=== PATIENT | female | born 1965 | race Caucasian/White ===

== ENCOUNTER → 2017-05-29 | Outpatient (CLI) | payer BC ==
[~2017-05-29] MED LIST: IOHEXOL 180 MG/ML 10 ML VIAL.; methylPREDNISolone ACETATE 40 MG/ML VIAL.; methylPREDNISolone ACETATE 80 MG/ML VIAL.
== END | disposition home or self-care (01) ==
LOC: PNCL 07:54
DX: M50.123 Cervical disc disorder at C6-C7 level with radiculopathy (principal); M48.02 Spinal stenosis, cervical region; E11.9 Type 2 diabetes mellitus without complications; I10 Essential (primary) hypertension; M19.90 Unspecified osteoarthritis, unspecified site; F17.210 Nicotine dependence, cigarettes, uncomplicated; Z98.890 Other specified postprocedural states; Z72.89 Other problems related to lifestyle
CPT/HCPCS: 62321; J1030; J1040; Q9965

== ENCOUNTER → 2017-06-12 | Outpatient (CLI) | payer BC | END | disposition home or self-care (01) | LOC: PNCL 07:47 | DX: M50.10 Cervical disc disorder with radiculopathy, unspecified cervical region (principal) | CPT/HCPCS: 62321; J1030; J1040; Q9965 ==

== ENCOUNTER → 2017-08-04 | Outpatient (CLI) | payer BC | END | disposition home or self-care (01) | LOC: PNCL 09:58 | DX: M50.123 Cervical disc disorder at C6-C7 level with radiculopathy (principal); M48.02 Spinal stenosis, cervical region | CPT/HCPCS: 62321; J1030; J1040; Q9965 ==

== ENCOUNTER → 2018-01-19 | Outpatient (CLI) | payer BC, OTHER ==
[~2018-01-19] MED LIST changes: +AMLO5TAB7 PO; +ASPI-482 PO; +ATOR40TA59 PO; +CYAN10005 PO; +FAMO20TA5 PO; +FENO134C PO; +HYDR-971 PO; -IOHEXOL 180 MG/ML 10 ML VIAL.; +LATA2.5D3 EACHEYE; +LATA2.5D3 OP; +LISI-334 PO; +LISI10TA2 PO; +METF500T16 PO; +METH-38 PO; +OMEG1CAP6 PO; +RANI150T21 PO; +THYR30TA PO; +THYR60TA PO; +VENL150C PO; -methylPREDNISolone ACETATE 40 MG/ML VIAL.; -methylPREDNISolone ACETATE 80 MG/ML VIAL.
[2018-01-19 16:09] LABS: BASO # 0.1 x10^3/uL (0.0-0.2); BASO % 1 % (0-3); EOS # 0.6 x10^3/uL (0.0-0.7); EOS % 6 % (0-3); HEMOGLOBIN 14.8 g/dL (12.0-15.5); LYMPH # 2.7 x10^3/uL (1.0-4.8); LYMPH % 30 % (24-48); MEAN CORPUSCULAR HEMOGLOBIN 30 pg (25-35); MEAN CORPUSCULAR HGB CONC 35 g/dL (31-37); MEAN CORPUSCULAR VOLUME 87 fL (79-100); MONO # 0.6 x10^3/uL (0.0-1.1); MONO % 7 % (0-9); NEUT % 56 % (31-73); PLATELET COUNT 267 x10^3/uL (140-400); RED BLOOD COUNT 4.92 x10^6/uL (3.50-5.40); RED CELL DISTRIBUTION WIDTH 14.3 % (11.5-14.5); WHITE BLOOD COUNT 8.9 x10^3/uL (4.0-11.0)
--- NOTE | 2018-01-19 16:13 | EKG ---
[facility] [address] [place] [address] Test Date: 2018-01-19 Test Time: 15:48:37 Pat Name: ART CHRISTINE Department: Room: Gender: F Area Attendant: : 1965 Requested By: PERRY QUEEN Order Number: [id number] Reading MD: Bassam Nuñez Measurements Intervals [place] Rate: 93 P: 9 ID: 130 QRS: 21 QRSD: 64 T: 76 QT: 336 QTc: 420 Interpretive Statements SINUS RHYTHM NO SPECIFIC ECG ABNORMALITIES Electronically Signed On 01-20-2018 11:44:28 CDT by Bassam Nuñez
[2018-01-19 16:46] LABS: ALBUMIN/GLOBULIN RATIO 1.2 (1.0-1.7); CALCIUM 9.6 mg/dL (8.5-10.1); CREATININE 0.9 mg/dL (0.6-1.0); GFR 65.5; POTASSIUM 3.8 mmol/L (3.5-5.1); TOTAL BILIRUBIN 0.3 mg/dL (0.2-1.0); TOTAL PROTEIN 7.4 g/dL (6.4-8.2)
== END | disposition home or self-care (01) ==
LOC: SURGPAT 13:37
PROVIDERS: ATTEND Neurological Surgery
DX: Z01.818 Encounter for other preprocedural examination (principal); M50.122 Cervical disc disorder at C5-C6 level with radiculopathy; M50.123 Cervical disc disorder at C6-C7 level with radiculopathy
CPT/HCPCS: 36415; 80053; 85025; 87641; 93005

== ENCOUNTER 2018-01-26 07:09 | Observation (INO) | payer BC, OTHER ==
[~2018-01-26] VITALS: Ht 157.5 cm; Wt 90.7 kg
[2018-01-26] VITALS (11 sets, daily range): BP systolic 112–132; BP diastolic 66–81
[~2018-01-26 07:09] MED LIST changes: +BUPIVAC MPF-EPI 0.5%-1:200000 30 ML VIAL. ONE; +GELATIN SPONGE SIZE 100. ONE; -HYDR-971 PO; -METH-38 PO; +THROMBIN TOPICAL 20,000 UNIT SPRAY.SYRN KIT TP ONE
[2018-01-26] MEDS ORDERED: BACITRACIN 50,000 UNIT in IV NORMAL SALINE 1000ML BAG 1,000 ML IRR ONE (07:31)
[2018-01-26] MEDS ORDERED: IV RINGERS,LACTATED 1000ML 1,000 ML IV SCH ×2 (08:00→11:28)
[2018-01-26] MEDS ORDERED: REMIFENTANIL 1 MG VIAL. IV ONE (08:19)
[2018-01-26] MEDS ORDERED: fentaNYL PF VIAL 250 MCG/5 ML VIAL ONE (08:19)
[2018-01-26] MEDS ORDERED: ROCURONIUM 50 MG/5 ML VIAL. ONE (08:20)
[2018-01-26] MEDS ORDERED: MIDAZOLAM HCL/PF 2 MG/2 ML VIAL. ONE (08:20)
[2018-01-26] MEDS ORDERED: PROPOFOL 20 ML IV ONE (09:11)
[2018-01-26] MEDS ORDERED: PROPOFOL 50 ML IV ONE (09:11)
[2018-01-26] MEDS ORDERED: 0.9 % SODIUM CHLORIDE 20 ML VIAL. IJ ONE (09:11)
[2018-01-26] MEDS ORDERED: PHENYLEPHRINE in 0.9% NACL PF 1 MG/10 ML SYRINGE. IV ONE (09:11)
[2018-01-26] MEDS ORDERED: LIDOCAINE 2% PF Vial for OR 5 ML VIAL. ONE (09:11)
[2018-01-26] MEDS ORDERED: ONDANSETRON PF 4 MG/2 ML VIAL. ONE (09:11)
[2018-01-26] MEDS ORDERED: DESFLURANE > 120 MINUTES IH ONE (09:11)
[2018-01-26] MEDS ORDERED: DEXAMETHASONE SOD PHOS 20 MG/5 ML VIAL. ONE (09:11)
[2018-01-26] MEDS ORDERED: PHENYLEPHRINE 10 MG/ML VIAL. ONE ×2 (09:24)
[2018-01-26] MEDS ORDERED: ePHEDrine PF IN SALINE 50 MG/5 ML DISP.SYRIN IV ONE (09:28)
[2018-01-26] MEDS ORDERED: MINERAL OIL/PETROLATUM,WHITE OPHTH OINT 3.5GM TUBE. ONE (09:36)
[2018-01-26] MEDS ORDERED: MORPHINE SULFATE 2 MG/ML VIAL. ONE (11:26)
[2018-01-26] MEDS ORDERED: PROCHLORPERAZINE 10 MG/2 ML VIAL. ONE (11:26)
[2018-01-26] MEDS ORDERED: fentaNYL PF VIAL 100 MCG/2 ML VIAL ONE (11:26)
[2018-01-26] MEDS ORDERED: fentaNYL PF VIAL 100 MCG/2 ML VIAL IV PRN ×2 (11:30→12:30)
[2018-01-26] MEDS ORDERED: HYDROmorphone 2 MG/ML VIAL IV PRN (11:30)
[2018-01-26] MEDS ORDERED: LIDOCAINE 1% PF 2 ML VIAL. ID PRN (11:30)
[2018-01-26] MEDS ORDERED: PROCHLORPERAZINE 10 MG/2 ML VIAL. IV PRN (11:30)
[2018-01-26] MEDS ORDERED: ONDANSETRON PF 4 MG/2 ML VIAL. IV PRN ×2 (11:30→12:30)
[2018-01-26] MEDS: MORPHINE SULFATE 2 MG/ML VIAL. IV PRN ×2 (11:39→12:07)
[2018-01-26] MEDS: fentaNYL PF VIAL 100 MCG/2 ML VIAL IV PRN ×2 (11:40→12:34)
--- NOTE | 2018-01-26 12:26 | OP ---
DATE OF SURGERY: 01/26/2018 PREOPERATIVE DIAGNOSES: Herniated cervical disc and foraminal narrowing with cervical radiculopathy, C5-C6, C6-C7. POSTOPERATIVE DIAGNOSES: Herniated cervical disc and foraminal narrowing with cervical radiculopathy, C5-C6, C6-C7. OPERATION PERFORMED: Anterior cervical microdiscectomy C5-C6, C6-C7; anterior cervical interbody fusion, C5-C6, C6-C7 with interbody fusion bone block insert and anterior cervical plate C5-6-7. The operation was done with multimodality monitoring including EMG, SSEP, NIMS, motor evoked potentials. We also used fluoroscopy, the microscope with microscopic dissection. SURGEON: Pantera Queen M.D. [place] UNDERWRITER: Carla Rodrigez, assisted with the surgery. She assisted with exposure, the two level discectomy and fusion as well as the closure. OPERATIVE INDICATIONS: The patient is a very pleasant 52-year-old who has developed intractable neck and arm pain, which failed conservative measures including epidural steroid injections, which were not significantly beneficial. On imaging studies, the above-mentioned findings were seen and I recommended a 2-level anterior cervical microdiscectomy and fusion. I spoke with her about the surgery, the risks, technique and expected postoperative course and she wished to go ahead. DESCRIPTION OF PROCEDURE: Following general endotracheal anesthesia, the patient was positioned supine on the operating room table. The anterior cervical area was then prepped and draped in standard fashion. GAYATRI hose and AV impulse boots were applied for DVT prophylaxis. The microscope was draped. Fluoroscopy was draped and brought into the field. Monitoring was established. Ancef 2 grams was given less than 1 hour prior to initiation of surgery. Using fluoroscopic guidance, an incision was made from the midline around to the right side in a skin crease. It was taken down the skin and subcutaneous tissue. I partly incised the platysma, which gave me access around the medial aspect of sternocleidomastoid and carotid artery sheath down the anterior cervical vertebral bodies. I reflected the trachea and the esophagus contralaterally. I placed a [place] anterior cervical retractor at C6-C7. I confirmed my positions fluoroscopically. I brought in the microscope and the remainder of the surgery was done with the microscope using microscopic technique. I incised the anterior annulus with #11 blade and performed a generous discectomy with pituitary rongeurs. There was considerable bone spurring and I drilled his away as well as the posterior spurring, which I also drilled away. I brought in the 1 and 2 mm micro Kerrisons and trimmed the significant right-sided disc bulging and hard disc and trimmed this material quite far lateral as far as I felt I safely could. I irrigated copiously with antibiotic solution. I was able to pass a blunt hook easily out through the foramen on either side. I scraped away the cartilaginous endplate and measured and placed a 6 mm interbody fusion bone block with allograft bone. I then removed the retractor up to C5-6 and I performed the identical operation at C5-C6. I did again put in 14 mm pins in C5 and C6 and distracted the disc space. I performed a very generous discectomy. I drilled the posterior and anterior spurring away. I used the 1 and 2 mm Kerrisons to remove the annulus and the posterior disc bulging as well as opening the ligament and worked laterally bilaterally to assure that the region was completely decompressed. I measured and placed a 6 mm bone block again packed with allograft bone and then used a 28 mm anterior plate with 13 mm screws, placed superior and inferior screws first and assured myself of excellent positioning and then placed the remaining screws, which were all locked. I irrigated copiously and then removed the retractor. I explored carefully. Hemostasis was perfect. I then closed the wound in layers with absorbable sutures. The skin was closed with 4-0 subcuticular stitch. The monitoring was stable and potentially slightly improved during the operation. There were no untoward events. I was quite pleased with the surgery. PANTERA QUEEN MD DR: LUCAS/deshaun JOB#: [id number] / [id number] GRAY
[2018-01-26] MEDS ORDERED: MAG HYDROX/ALUMINUM HYD/SIMETH 30 ML ORAL.SUSP PO PRN (12:30)
[2018-01-26] MEDS ORDERED: diphenhydrAMINE HCL 25 MG CAPSULE PO PRN (12:30)
[2018-01-26] MEDS ORDERED: MAGNESIUM HYDROXIDE 2,400 MG/30 ML ORAL.SUSP. PO PRN (12:30)
[2018-01-26] MEDS ORDERED: CALCIUM CARBONATE 500 MG TAB.CHEW PO PRN (12:30)
[2018-01-26] MEDS ORDERED: 0.9 % SODIUM CHLORIDE 10 ML DISP.SYRIN. IV PRN (12:30)
[2018-01-26] MEDS ORDERED: HYDROcodone/APAP 5/325MG 1 TAB TABLET PO PRN (12:30)
[2018-01-26] MEDS ORDERED: ACETAMINOPHEN 325 MG TABLET. PO PRN (12:30)
[2018-01-26] MEDS: POTASSIUM CL 20MEQ D5-0.45NACL 1,000 ML IV SCH ×2 (14:23→21:01)
[2018-01-26] MEDS: METHOCARBAMOL 750 MG TABLET PO SCH ×2 (14:24→20:49)
--- NOTE | 2018-01-26 15:33 | PREOP HP ---
DATE OF SERVICE: 01/26/2018. 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 This problem has been present for years, but has worsened recently. Typing and looking down increase her pain. Massage helps. She has been taking naproxen. She had epidural steroid injections, which she said helped her. The injections and physical therapy did not give her significant relief. PAST MEDICAL HISTORY: Cold sores, fever blisters, hypertension, stroke, thyroid disease, tonsillitis, diabetes. PAST SURGICAL HISTORY: 2005, tonsillectomy. FAMILY HISTORY: Cancer, diabetes, hypertension. 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 . Exercises weekly. Denies substance abuse. Smokes half pack per day and has for 30 years. Drinks one alcoholic drink daily. Drinks soda and tea daily. ALLERGIES: No known drug allergies. CURRENT MEDICATIONS: Thyroid medication, venlafaxine, atorvastatin, aspirin, metformin, B12 active, fish oil, famotidine, amlodipine. REVIEW OF SYSTEMS: A 12-point review of systems was obtained and is noncontributory except for that noted above. PHYSICAL EXAMINATION: NEUROSURGERY EXAMINATION: GENERAL APPEARANCE: Alert, pleasant, in no acute distress. HEENT: Normocephalic and atraumatic. NECK AND THYROID: Nyzf-tl-[id number] tenderness with palpation of the posterior cervical region. SKIN: Warm and dry. MUSCULOSKELETAL: Cervical paraspinal muscle bulk is normal, restricted range of motion of the cervical spine. Normal range of motion of the upper extremities bilaterally. EXTREMITIES: No clubbing, cyanosis or edema. NEUROLOGIC: Alert and oriented x 3, normal recent and remote memory, strength 5/5 bilateral upper and lower extremities, sensory was intact to light touch in the upper and lower extremities except for decrease in the right thumb and index finger. Reflexes are present and symmetric in the upper and lower extremities bilaterally, normal gait. IMAGING: I reviewed her cervical MRI scan. On that MRI scan from 04/2017, there is a right-sided disc osteophyte complex as well as severe right foraminal narrowing at C6-C7. At C5-C6, there is posterior disc bulging on the right side with right-sided canal stenosis. ASSESSMENT/ PLAN: At this point, the patient has failed conservative measures and the problem remains quite significant. After reviewing MRI scan, my plan is to proceed with a 2-level ACDF at C5-C6 and C6-C7. I did discuss the surgery with her and the risks. I spoke issues pertaining to the soft tissue structures of the neck and sequelae of injury to each as risks of surgery. I outlined the technique of the operation in detail. I discussed postoperative care. She understands. She would like to go ahead. We will make the arrangements. PERRY QUEEN MD DR: LUCAS/deshaun JOB#: [id number] / [id number] GRAY
[2018-01-26] MEDS: metFORMIN 500 MG TABLET PO SCH (17:25)
[2018-01-26] MEDS: DOCUSATE SODIUM 100 MG CAPSULE. PO SCH (20:49)
[2018-01-26] MEDS ORDERED: LATANOPROST 0.005% OPHTH SOLUTION 2.5ML BOTTLE. OU SCH (21:00)
[2018-01-26] MEDS: VENLAFAXINE 50 MG TABLET. PO SCH (21:00)
[2018-01-26] MEDS ORDERED: FAMOTIDINE 20 MG TABLET. PO SCH (21:00)
[2018-01-26] MEDS: HYDROcodone/APAP 5/325MG 1 TAB TABLET PO PRN (22:39)
[2018-01-27 03:07] VITALS: BP 105/69
[2018-01-27] MEDS: HYDROcodone/APAP 5/325MG 1 TAB TABLET PO PRN (06:14)
[2018-01-27 06:35] VITALS: BP 123/77
[2018-01-27] MEDS: METHOCARBAMOL 750 MG TABLET PO SCH (07:53)
[2018-01-27] MEDS: metFORMIN 500 MG TABLET PO SCH (07:53)
[2018-01-27] MEDS: DOCUSATE SODIUM 100 MG CAPSULE. PO SCH (07:53)
[2018-01-27] MEDS: VENLAFAXINE 50 MG TABLET. PO SCH ×2 (07:53→08:25)
[2018-01-27 07:54] VITALS: BP 141/85
--- NOTE | 2018-01-27 08:56 | DISCH ---
DISCHARGE INSTRUCTIONS Condition on Discharge Condition on Discharge: Stable Activity After Discharge Activity Instructions for Disc: Activity as tolerated, Avoid exertion, Walk in house Other activity instructions: ambulation is the only exercise permitted; gradually increse time and dista Bathing Instructions: Shower-keep dressing dry, No Tub Bath until see Lifting Instructions after Dis: No heavy lifting, No pulling or pushing, Do not lift >10 pounds Exercise Instruction after Dis: Progress as tolerated Driving Instructions after Dis: No driving for 2 weeks Weight Bearing Status after Di: No restrictions, Full weight bearing Diet after Discharge Diet after Discharge: Diabetic No Calorie Level Diet Texture: Regular Liquid Texture: Thin Liquid Wound Incision Care Wound/Incision Care: Ice to area for comfort, Change dressing Other wound/incision instructi: may shower 48 hrs after surgery NO direct water , antibiotic cream/ointment Wound Care Equipment: Dressings Checks after Discharge DC Comment: increase fruits, vegetables and fiber ; attempt bm q 2-3 days Contacting the DRLee Ann after DC Call your doctor for: Concerns you may have Follow-Up Follow Up With: call [phone] for a 2 week post op appt with Dr. Resi/ PERRY Alva MD Jan 27, 2018 08:56
[2018-01-27] MEDS ORDERED: CYANOCOBALAMIN (VITAMIN B-12) 1,000 MCG TABLET. PO SCH (09:00)
[2018-01-27] MEDS ORDERED: THYROID,PORK 60 MG TABLET PO SCH (09:00)
[2018-01-27] MEDS ORDERED: ASPIRIN ENTERIC COATED 81 MG TABLET.DR. PO SCH (09:00)
[2018-01-27] MEDS ORDERED: amLODIPine BESYLATE 5 MG TABLET PO SCH (09:00)
[2018-01-27] MEDS ORDERED: ATORVASTATIN CALCIUM 40 MG TABLET. PO SCH (09:00)
[2018-01-27] MEDS ORDERED: METH-38 PO (09:08)
[2018-01-27] MEDS ORDERED: HYDR-971 PO (09:09)
--- NOTE | 2018-01-28 08:12 | PATHOLOGY ---
[facility] Accession Number: [id number] . 01 Material submitted: . CERVICAL DISC . 01 Clinician provided ICD-10: M50.20 . 01 Clinical history: . Cervical herniated disc with radiculopathy . 02 Diagnosis: Segments of cartilaginous tissue and bone, cervical disc: - Degenerative changes of cartilaginous tissue. LBQ/01/27/2018 . 02 Comment: There is no evidence of an acute inflammatory process or malignancy. (JPM/db; 01/27/2018) . 02 Electronically signed: . Reza Madden MD, Pathologist NPI- [id number] . 01 Gross description: . The specimen is received in formalin, labeled "Kvng, Ana, cervical disc" and consists of multiple fragments of multiple fragments of pantoja and pink-white, rubbery and gritty tissue with possible admixed bone measuring 2.7 x 2.5 x 0.3 cm in aggregate which are entirely submitted in A1 following decalcifocation. (JPM:SDY; 01/26/2018) SYU/SYU . 02 Pathologist provided ICD-10: M50.30 . 02 CPT . 681572, [id number] Specimen Comment: A courtesy copy of this report has been sent to Specimen Comment: [phone]. Specimen Comment: Report sent to Performed at: 01 [facility] [address], [place] [id number] MD Art Stern MD Phone: [phone] Performed at: 02 [facility] [address] [place], [place] [id number] MD Reza Madden MD Phone: [phone]
== END 2018-01-27 10:25 | disposition home or self-care (01) ==
LOC: SURG 07:09 → 4 SOUTHEST 12:27
PROVIDERS: ADMIT Neurological Surgery; ATTEND Neurological Surgery
DX: M50.122 Cervical disc disorder at C5-C6 level with radiculopathy (principal); M50.123 Cervical disc disorder at C6-C7 level with radiculopathy; E11.9 Type 2 diabetes mellitus without complications; I10 Essential (primary) hypertension; Z82.49 Family history of ischemic heart disease and other diseases of the circulatory system; Z83.3 Family history of diabetes mellitus; Z86.73 Personal history of transient ischemic attack (TIA), and cerebral infarction without residual deficits; Z87.891 Personal history of nicotine dependence
CPT/HCPCS: 20930; 22551; 22552; 22845; 76000; 82962; 88304; 88311; 90471; 90756; 96365; 96366; 97161; A7015; C1713; C1821; G0378; G0379; J0690; J0780; J1100; J2001; J2250; J2270; J2370; J2405; J2704; J3010; J3490; J7030; J7120; Q2035

== ENCOUNTER → 2018-05-08 | Outpatient (CLI) | payer OTHER ==
[~2018-05-08] MED LIST changes: +AMLO5TAB10 PO; -AMLO5TAB7 PO; -BUPIVAC MPF-EPI 0.5%-1:200000 30 ML VIAL. ONE; +CYAN-25 PO; -CYAN10005 PO; -GELATIN SPONGE SIZE 100. ONE; +HYDR-3164 PO; +METH-38 PO; +RANI-376 PO; -RANI150T21 PO; -THROMBIN TOPICAL 20,000 UNIT SPRAY.SYRN KIT TP ONE
--- NOTE | 2018-05-08 11:33 | RAD ---
EXAM: Cervical spine, 2 views. HISTORY: Fusion. COMPARISON: None. FINDINGS: 2 views of cervical spine are obtained. There is instrumented anterior spinal fusion and interbody fusion at C5-C7. There is minimal anterolisthesis of C4 on C5. The vertebral arauz are normal in height and the nonfused disc spaces are preserved. There is prevertebral soft tissue prominence. IMPRESSION: 1. Instrumented fusion at C5-C7. 2. No acute osseous finding. Electronically signed by: Meaghan Ornelas MD (05/08/2018 11:28 AM) [facility]
== END | disposition home or self-care (01) ==
LOC: RAD 10:41
PROVIDERS: ATTEND Neurological Surgery
DX: M43.22 Fusion of spine, cervical region (principal)
CPT/HCPCS: 72040